=== PATIENT | female | born 1995 | race African-American/Black ===

== ENCOUNTER 2022-05-20 14:40 | Emergency (ER) | payer OTHER, SELFPAY ==
[~2022-05-20] VITALS: Ht 165.1 cm; Wt 152.2 kg
[2022-05-20] MEDS ORDERED: NIFE10CA2 PO (14:56)
[2022-05-20] MEDS ORDERED: ONDANSETRON 4MG 2ML VIAL IV ONE (15:25)
[2022-05-20] MEDS ORDERED: MORPHINE 4 MG/ML 1ML VIAL/SYRINGE IV ONE (15:30)
[2022-05-20] MEDS ORDERED: PANTOPRAZOLE 40MG VIAL IV ONE (15:35)
[2022-05-20] MEDS ORDERED: GI COCKTAIL 50ML BTL(HYOSCYAMINE/MAALOX/LIDOCAINE VISCOUS)(1:3:1) PO ONE (15:35)
[2022-05-20 16:14] LABS: BASO % 0.2 % (0.0-1.0); HEMATOCRIT 37.5 % (36.0-47.0); HEMOGLOBIN 11.7 g/dl (12.0-15.5); LYMPH % 18.8 % (24.0-44.0); MEAN CORPUSCULAR HEMOGLOBIN 24.8 pg (27.0-33.0); MEAN CORPUSCULAR HGB CONC 31.2 g/dl (32.0-36.5); MEAN CORPUSCULAR VOLUME 79.6 fl (80.0-96.0); MONO # 0.7 10^3/uL (0.0-0.8); NEUTROPHILS # 7.8 10^3/uL (1.5-8.5); NEUTROPHILS % 73.6 % (36.0-66.0); PLATELET COUNT, AUTOMATED 466 10^3/uL (150-450); RED BLOOD COUNT 4.71 10^6/uL (4.00-5.40); WHITE BLOOD COUNT 10.6 10^3/uL (4.0-10.0)
[2022-05-20 16:43] LABS: ALBUMIN 3.3 GM/DL (3.2-5.2); ALT/SGPT 198 U/L (12-78); BILIRUBIN,DIRECT 0.4 MG/DL (0.0-0.2); BILIRUBIN,TOTAL 0.5 MG/DL (0.2-1.0); BLOOD UREA NITROGEN 8 MG/DL (7-18); CALCIUM LEVEL 9.3 MG/DL (8.5-10.1); CARBON DIOXIDE LEVEL 24 MEQ/L (21-32); CHLORIDE LEVEL 106 MEQ/L (98-107); CREATININE FOR GFR 0.63 MG/DL (0.55-1.30); GLOMERULAR FILTRATION RATE > 60.0 (>60); GLUCOSE, FASTING 124 MG/DL (70-100); LIPASE 60 U/L (73-393); POTASSIUM SERUM 4.3 MEQ/L (3.5-5.1); SODIUM LEVEL 135 MEQ/L (136-145); TOTAL PROTEIN 7.7 GM/DL (6.4-8.2)
[2022-05-20 17:06] LABS: HCG, SERUM QUALITATIVE NEGATIVE (NEGATIVE)
[2022-05-20] MEDS ORDERED: KETOROLAC 30 MG/ML 1ML VIAL IV ONE (17:15)
[2022-05-20] MEDS ORDERED: ISOVUE-370 76% 100ML VIAL As Ordered ONE (17:16)
[2022-05-20 20:40] VITALS: BP 126/73
[2022-05-20] MEDS ORDERED: ACETAMINOPHEN TAB 650MG DOSE (2X325MG) PO ONE (20:40)
[2022-05-20] MEDS ORDERED: PANT40TA29 PO (20:57)
[2022-05-22] MEDS ORDERED: SUMA50TA2 PO (15:27)
[2022-05-22] MEDS ORDERED: PANT40TA29 PO (15:27)
[2022-05-22] MEDS ORDERED: METF-838 PO (15:27)
[2022-05-22] MEDS ORDERED: NIFE30TA50 PO (15:27)
[2022-05-22] MEDS ORDERED: EXCETAB32 PO (15:27)
[2022-05-24] MEDS ORDERED: OXYC-517 PO (13:21)
[2022-05-24] MEDS ORDERED: ONDA4TAB6 PO (13:31)
== END 2022-05-20 21:35 | disposition home or self-care (01) ==
LOC: M ED 14:40
DX: R94.5 Abnormal results of liver function studies (principal); R11.10 Vomiting, unspecified; R19.7 Diarrhea, unspecified; I10 Essential (primary) hypertension; R51.9 Headache, unspecified; R73.03 Prediabetes; F17.200 Nicotine dependence, unspecified, uncomplicated
CPT/HCPCS: 71046; 74177; 76705; 76856; 80048; 80076; 83605; 83690; 84703; 85025; 93005; 93041; 96374; 96375; 99284; C9113; J1885; J2270; J2405; Q9967

== ENCOUNTER 2022-05-21 01:37 | Emergency (ER) | payer OTHER ==
[~2022-05-21] VITALS: Ht 165.1 cm; Wt 145.4 kg
[~2022-05-21 01:37] MED LIST: NIFE10CA2 PO; PANT40TA29 PO
[2022-05-21] MEDS ORDERED: GI COCKTAIL 50ML BTL(HYOSCYAMINE/MAALOX/LIDOCAINE VISCOUS)(1:3:1) PO ONE (06:35)
[2022-05-21] MEDS ORDERED: PANTOPRAZOLE 40MG TAB (PROTONIX) PO ONE (06:35)
[2022-05-21 07:30] VITALS: BP 148/80
[2022-05-22] MEDS ORDERED: PANT40TA29 PO (15:27)
[2022-05-22] MEDS ORDERED: EXCETAB32 PO (15:27)
[2022-05-22] MEDS ORDERED: SUMA50TA2 PO (15:27)
[2022-05-22] MEDS ORDERED: NIFE30TA50 PO (15:27)
[2022-05-22] MEDS ORDERED: METF-838 PO (15:27)
[2022-05-24] MEDS ORDERED: OXYC-517 PO (13:21)
[2022-05-24] MEDS ORDERED: ONDA4TAB6 PO (13:31)
== END 2022-05-21 07:33 | disposition home or self-care (01) ==
LOC: EDBD 01:37 → M ED 01:37
DX: K52.9 Noninfective gastroenteritis and colitis, unspecified (principal); R74.01 Elevation of levels of liver transaminase levels; R73.03 Prediabetes; I10 Essential (primary) hypertension; R51.9 Headache, unspecified; Z79.82 Long term (current) use of aspirin; Z79.84 Long term (current) use of oral hypoglycemic drugs; Z79.899 Other long term (current) drug therapy

== ENCOUNTER → 2022-09-02 12:33 | Emergency (ER) | payer OTHER ==
[~2022-09-02] VITALS: Ht 165.1 cm; Wt 156.0 kg
[2022-09-02 09:23] VITALS: BP 143/83
[~2022-09-02 12:33] MED LIST changes: +ACETAMINOPHEN 500 MG TAB PO ONE; +ACETAMINOPHEN TAB 650MG DOSE (2X325MG) PO ONE; +AMOX875T2 PO; +BENZOCAINE 20% GEL 9GM TUBE (ANBESOL MAX STRENGTH) TOP ONE; +EXCETAB32 PO; +IBUP80TA PO; +KETOROLAC 30 MG/ML 1ML VIAL IM ONE; +METF-838 PO; +NIFE30TA50 PO; +ONDA4TAB6 PO; +OXYC-517 PO; +SUMA50TA2 PO; +diphenhydrAMINE 25MG CAP PO ONE
== END | disposition home or self-care (01) ==
LOC: EDUNIT# 09-01 21:58 → EDBD 09-01 22:02 → M ED 09-01 22:02
DX: K02.9 Dental caries, unspecified (principal); K08.89 Other specified disorders of teeth and supporting structures; G43.909 Migraine, unspecified, not intractable, without status migrainosus; I10 Essential (primary) hypertension; Z79.82 Long term (current) use of aspirin; Z79.84 Long term (current) use of oral hypoglycemic drugs; Z79.899 Other long term (current) drug therapy

== ENCOUNTER → 2023-01-15 | Outpatient (CLI) | payer OTHER, SELFPAY ==
[~2023-01-15] MED LIST changes: -ACETAMINOPHEN 500 MG TAB PO ONE; -ACETAMINOPHEN TAB 650MG DOSE (2X325MG) PO ONE; -BENZOCAINE 20% GEL 9GM TUBE (ANBESOL MAX STRENGTH) TOP ONE; -KETOROLAC 30 MG/ML 1ML VIAL IM ONE; -diphenhydrAMINE 25MG CAP PO ONE
[2023-01-15 20:12] LABS: ALBUMIN 3.3 G/DL (3.2-5.2); ALKALINE PHOSPHATASE 123 U/L (46-116); ALT/SGPT 22 U/L (7.0-40); AST/SGOT 13 U/L (<34); BILIRUBIN,TOTAL 0.2 MG/DL (0.3-1.2); BLOOD UREA NITROGEN 9 MG/DL (9-23); CALCIUM LEVEL 8.8 MG/DL (8.5-10.1); CARBON DIOXIDE LEVEL 25 MMOL/L (20-31); CHLORIDE LEVEL 108 MMOL/L (98-107); CHOLESTEROL LEVEL 151 MG/DL (<200); CHOLESTEROL RISK RATIO 3.31 (<5); CREATININE FOR GFR 0.75 MG/DL (0.55-1.30); GLOMERULAR FILTRATION RATE > 60.0 (>60); GLUCOSE, FASTING 88 MG/DL (60-100); HDL CHOLESTEROL 45.5 MG/DL (>40); LDL CHOLESTEROL 87.9 MG/DL (<100); NON-HDL-C 105.5 MG/DL; POTASSIUM SERUM 4.6 MMOL/L (3.5-5.1); SODIUM LEVEL 139 MMOL/L (136-145); TOTAL PROTEIN 7.1 G/DL (5.7-8.2); TRIGLYCERIDES LEVEL 88 MG/DL (<150)
[2023-01-15 20:13] LABS: FREE T4 0.95 NG/DL (0.89-1.76); PROLACTIN 6.49 NG/ML; THYROID STIMULATING HORMONE 0.835 uIU/ML (0.55-4.78)
[2023-01-15 20:17] LABS: HEMATOCRIT 38.2 % (36.0-47.0); HEMOGLOBIN 11.7 g/dl (12.0-15.5); MEAN CORPUSCULAR HEMOGLOBIN 24.4 pg (27.0-33.0); MEAN CORPUSCULAR HGB CONC 30.6 g/dl (32.0-36.5); MEAN CORPUSCULAR VOLUME 79.7 fl (80.0-96.0); PLATELET COUNT, AUTOMATED 506 10^3/uL (150-450); RED BLOOD COUNT 4.79 10^6/uL (4.00-5.40); WHITE BLOOD COUNT 8.5 10^3/uL (4.0-10.0)
[2023-01-15 20:27] LABS: HEMOGLOBIN A1c 5.7 % (4.0-6.0)
== END ==
LOC: M PLALAB 14:18
PROVIDERS: ATTEND Family Medicine
DX: R00.2 Palpitations (principal); I10 Essential (primary) hypertension; E66.01 Morbid (severe) obesity due to excess calories; N64.3 Galactorrhea not associated with childbirth; R73.03 Prediabetes

== ENCOUNTER → 2023-04-23 | Outpatient (CLI) | payer OTHER ==
[~2023-04-23] MED LIST changes: +NIFE-3 PO; -NIFE30TA50 PO
[2023-04-23 15:38] LABS: HEMATOCRIT 33.9 % (36.0-47.0); HEMOGLOBIN 10.8 g/dl (12.0-15.5); MEAN CORPUSCULAR HEMOGLOBIN 24.5 pg (27.0-33.0); MEAN CORPUSCULAR HGB CONC 31.9 g/dl (32.0-36.5); PLATELET COUNT, AUTOMATED 512 10^3/uL (150-450); WHITE BLOOD COUNT 11.3 10^3/uL (4.0-10.0)
[2023-04-23 16:05] LABS: ALBUMIN 3.2 G/DL (3.2-5.2); ALKALINE PHOSPHATASE 104 U/L (46-116); ALT/SGPT 25 U/L (7.0-40); AST/SGOT 11 U/L (<34); BILIRUBIN,TOTAL 0.2 MG/DL (0.3-1.2); BLOOD UREA NITROGEN 8 MG/DL (9-23); CALCIUM LEVEL 8.8 MG/DL (8.5-10.1); CARBON DIOXIDE LEVEL 24 MMOL/L (20-31); CHLORIDE LEVEL 106 MMOL/L (98-107); CHOLESTEROL LEVEL 148 MG/DL (<200); CHOLESTEROL RISK RATIO 3.34 (<5); CREATININE FOR GFR 0.64 MG/DL (0.55-1.30); GLOMERULAR FILTRATION RATE > 60.0 (>60); GLUCOSE, FASTING 89 MG/DL (60-100); HDL CHOLESTEROL 44.2 MG/DL (>40); LDL CHOLESTEROL 87.8 MG/DL (<100); NON-HDL-C 103.8 MG/DL; POTASSIUM SERUM 4.2 MMOL/L (3.5-5.1); SODIUM LEVEL 138 MMOL/L (136-145); THYROID STIMULATING HORMONE 1.943 uIU/ML (0.55-4.78); TOTAL PROTEIN 7.2 G/DL (5.7-8.2); TRIGLYCERIDES LEVEL 80 MG/DL (<150)
[2023-04-23 16:06] LABS: FREE T4 1.01 NG/DL (0.89-1.76)
[2023-04-23 16:13] LABS: HEMOGLOBIN A1c 6.2 % (4.0-6.0)
== END ==
LOC: M PLALAB 14:19
PROVIDERS: ATTEND Family Medicine
DX: R00.2 Palpitations (principal); N64.3 Galactorrhea not associated with childbirth; E66.01 Morbid (severe) obesity due to excess calories; I10 Essential (primary) hypertension; R73.03 Prediabetes

== ENCOUNTER 2023-06-06 23:53 | Emergency (ER) | payer OTHER ==
[~2023-06-06] VITALS: Ht 165.1 cm; Wt 159.4 kg
[2023-06-06 23:54] VITALS: BP 144/90; TEMP 97.8; O2SAT 100
[2023-06-07] MEDS ORDERED: METOCLOPRAMIDE INJ 10MG/2ML VIAL IV ONE (00:40)
[2023-06-07] MEDS ORDERED: ACETAMINOPHEN 500 MG TAB PO ONE (00:40)
[2023-06-07] MEDS ORDERED: NS 1,000 ML IV ONE (00:40)
[2023-06-07 01:06] LABS: HEMATOCRIT 33.2 % (36.0-47.0); HEMOGLOBIN 10.8 g/dl (12.0-15.5); MEAN CORPUSCULAR HEMOGLOBIN 24.9 pg (27.0-33.0); MEAN CORPUSCULAR HGB CONC 32.5 g/dl (32.0-36.5); MEAN CORPUSCULAR VOLUME 76.5 fl (80.0-96.0); PLATELET COUNT, AUTOMATED 476 10^3/uL (150-450); RED BLOOD COUNT 4.34 10^6/uL (4.00-5.40); WHITE BLOOD COUNT 11.4 10^3/uL (4.0-10.0)
[2023-06-07 01:27] LABS: LIPASE 21 U/L (12-53)
[2023-06-07 01:29] LABS: ALBUMIN 2.9 G/DL (3.2-5.2); ALKALINE PHOSPHATASE 96 U/L (46-116); ALT/SGPT < 9 U/L (7.0-40); AST/SGOT 10 U/L (<34); BILIRUBIN,DIRECT < 0.1 MG/DL (<0.4); BILIRUBIN,TOTAL < 0.2 MG/DL (0.3-1.2); BLOOD UREA NITROGEN 6 MG/DL (9-23); CALCIUM LEVEL 8.9 MG/DL (8.5-10.1); CARBON DIOXIDE LEVEL 20 MMOL/L (20-31); CHLORIDE LEVEL 103 MMOL/L (98-107); CREATININE FOR GFR 0.49 MG/DL (0.55-1.30); GLOMERULAR FILTRATION RATE > 60.0 (>60); GLUCOSE, FASTING 103 MG/DL (60-100); POTASSIUM SERUM 4.1 MMOL/L (3.5-5.1); SODIUM LEVEL 135 MMOL/L (136-145); TOTAL PROTEIN 6.9 G/DL (5.7-8.2)
== END 2023-06-07 02:54 | disposition home or self-care (01) ==
LOC: M ED 23:53
DX: O26.891 Other specified pregnancy related conditions, first trimester (principal); R51.9 Headache, unspecified; O21.9 Vomiting of pregnancy, unspecified; I10 Essential (primary) hypertension; G43.909 Migraine, unspecified, not intractable, without status migrainosus; Z79.52 Long term (current) use of systemic steroids; Z79.83 Long term (current) use of bisphosphonates; Z79.899 Other long term (current) drug therapy; Z3A.01 Less than 8 weeks gestation of pregnancy
CPT/HCPCS: 80048; 80076; 83690; 84702; 85027; 96374; 99283; J2765

== ENCOUNTER → 2023-10-19 | Outpatient (CLI) | payer OTHER ==
[2023-10-19 18:13] LABS: FERRITIN 22.7 NG/ML (7.3-270.7)
[2023-10-19 18:44] LABS: HIV 1&2 SCREEN NEGATIVE (NEGATIVE)
[2023-10-19 18:51] LABS: HEPATITIS C VIRUS ABY INDEX 0.03 INDEX (<0.8)
[2023-10-19 19:08] LABS: Trichomonas vaginalis (AMP) NOT DETECTED (NEGATIVE)
[2023-10-19 19:57] LABS: GC DNA AMPLIFICATION NEGATIVE (NEGATIVE)
== END ==
LOC: M PLALAB 15:28
PROVIDERS: ATTEND Family Medicine
DX: Z11.3 Encounter for screening for infections with a predominantly sexual mode of transmission (principal); D50.9 Iron deficiency anemia, unspecified